=== PATIENT | female | born 1955 | race Caucasian/White ===

== ENCOUNTER 2022-02-10 09:30 | Outpatient (CLI) | payer OTHER, SELFPAY | END 2022-02-10 09:31 | disposition home or self-care (01) | LOC: FRMREF 09:37 | PROVIDERS: PCP Family Medicine; Visit Provider Obstetrics & Gynecology | DX: N39.0 Urinary tract infection, site not specified (principal) | CPT/HCPCS: 87086 ==

== ENCOUNTER 2022-04-30 13:45 | Outpatient (RCR) | payer OTHER, SELFPAY | END 2022-07-02 09:47 | disposition home or self-care (01) | PROVIDERS: PCP Family Medicine; Visit Provider Orthopaedic Surgery | DX: N81.10 Cystocele, unspecified (principal); R27.8 Other lack of coordination; M62.81 Muscle weakness (generalized); Z51.89 Encounter for other specified aftercare | CPT/HCPCS: 97110; 97112; 97162; 97535 ==

== ENCOUNTER 2022-05-19 10:50 | Outpatient (RCR) | payer OTHER, SELFPAY | END 2022-10-21 23:59 | disposition home or self-care (01) | PROVIDERS: PCP Family Medicine; Visit Provider Orthopaedic Surgery | DX: Z01.818 Encounter for other preprocedural examination (principal); Z29.9 Encounter for prophylactic measures, unspecified; M25.561 Pain in right knee; M17.11 Unilateral primary osteoarthritis, right knee; M25.661 Stiffness of right knee, not elsewhere classified; R26.2 Difficulty in walking, not elsewhere classified; Z98.890 Other specified postprocedural states; Z51.89 Encounter for other specified aftercare | CPT/HCPCS: 97110; 97161 ==

== ENCOUNTER 2024-10-26 09:46 | Outpatient (CLI) | payer BC, SELFPAY ==
--- NOTE | 2024-10-26 11:18 | P.ANES_ITS ---
Anesthesia Charges Start Date/Time Anesthesia Start Date: 10/26/24 Anesthesia Start Time: 10:35 Stop Date/Time Anesthesia Stop Date: 10/26/24 Anesthesia Stop Time: 11:10 Coding CPT Codes CPT Codes: DILAN LWR INTST NDSD NOS - [id number] ([id number]) P1 - NORMAL HEALTHY PATIENT, QX - FIELD SALES MANAGER SVMelissa W/ MED DIRECTION, QK - QUEEN'S COUNSEL 2-4 CNCRNT DILAN PROC
--- NOTE | 2024-10-26 11:18 | W.ANESCHARGE ---
Anesthesia Charges Start Date/Time Anesthesia Start Date: 10/26/24 Anesthesia Start Time: 10:35 Stop Date/Time Anesthesia Stop Date: 10/26/24 Anesthesia Stop Time: 11:10 Coding CPT Codes CPT Codes: DILAN LWR INTST NDAR NOS - [id number] ([id number]) P1 - NORMAL HEALTHY PATIENT, QX - LABORER GOLD LEAF SVMelissa W/ MED DIRECTION, QK - WIRING TECHNICIAN 2-4 CNCRNT DILAN PROC
--- NOTE | 2024-10-26 11:32 | P.ANES_ITS ---
Anesthesia Charges Start Date/Time Anesthesia Start Date: 10/26/24 Anesthesia Start Time: 10:35 Stop Date/Time Anesthesia Stop Date: 10/26/24 Anesthesia Stop Time: 11:10 Coding CPT Codes CPT Codes: DILAN LWR INTST NDTN NOS - [id number] ([id number]) P1 - NORMAL HEALTHY PATIENT, QK - LUNCHROOM AIDE 2-4 CNCRNT ANES PROC, QX - SOCIAL ECONOMIST SVC W/ MED DIRECTION
--- NOTE | 2024-10-26 11:32 | W.ANESCHARGE ---
Anesthesia Charges Start Date/Time Anesthesia Start Date: 10/26/24 Anesthesia Start Time: 10:35 Stop Date/Time Anesthesia Stop Date: 10/26/24 Anesthesia Stop Time: 11:10 Coding CPT Codes CPT Codes: DILAN LWR INTST NDAL NOS - [id number] ([id number]) P1 - NORMAL HEALTHY PATIENT, QK - MODEL MAKER FIREARMS 2-4 CNCRNT ANES PROC, QX - MIXING MACHINE TENDER CORK ROD SVC W/ MED DIRECTION
== END 2024-10-26 09:47 | disposition home or self-care (01) ==
LOC: OP CLINIC 09:47
PROVIDERS: PCP Family Medicine; Visit Provider Internal Medicine Gastroenterology
DX: Z12.11 Encounter for screening for malignant neoplasm of colon (principal); R19.5 Other fecal abnormalities; D12.3 Benign neoplasm of transverse colon; K57.30 Diverticulosis of large intestine without perforation or abscess without bleeding
CPT/HCPCS: 00811; 00812; 45381; 45385; 88305; J2704